=== PATIENT | male | born 1975 | race Caucasian/White ===

== ENCOUNTER 2017-05-11 17:48 | Inpatient (IN) | payer MEDICAID ==
[~2017-05-11] VITALS: Ht 170.2 cm; Wt 85.8 kg
[2017-05-11 20:18] LABS: BASOPHIL % 0.1 % (0-2); PLATELET COUNT 298 x10^3mcL (130-400); RED CELL DISTRIBUTION WIDTH 13.7 % (11.5-14.5)
[2017-05-11 20:25] LABS: CALCIUM 9.6 mg/dL (8.5-10.1); CARBON DIOXIDE 30.6 mmol/L (21-32); CHLORIDE SERUM 102 mmol/L (98-107); GFR1 > 60 mL/min; GLUCOSE SERUM 120 mg/dL (74-106); POTASSIUM SERUM 4.3 mmol/L (3.5-5.1); SODIUM SERUM 141 mmol/L (136-145)
[2017-05-11 20:29] LABS: ALBUMIN 4.6 g/dL (3.4-5.0); ALKALINE PHOSPHATASE 71 U/L (46-116); ALT/SGPT 66 U/L (16-63); AST/SGOT 32 U/L (15-37); BILIRUBIN TOTAL 0.82 mg/dL (0.20-1.00); LIPASE 84 IU/L (73-393)
[2017-05-11 20:30] LABS: TOTAL PROTEIN, SERUM 8.3 g/dL (6.4-8.2)
[2017-05-11 22:19] LABS: UA SPECIFIC GRAVITY 1.015 (1.005-1.035); microscopic required? YES; urine erythrocyte NEGATIVE (NEGATIVE)
[2017-05-11 22:29] LABS: AMPHETAMINE QUAL UR NONE DETECTED (NEG <=1000)
[2017-05-11 22:38] VITALS: BP 125/81
[2017-05-11 22:59] LABS: T3 TOTAL 1.63 ng/mL
[2017-05-11 23:15] LABS: CHOLESTEROL/HDL RATIO 4.5; PHOSPHOROUS 2.4 mg/dL (2.5-4.9)
[2017-05-11 23:19] LABS: FREE T4 1.21 ng/dL (0.76-1.46); FREE THYROXINE INDEX 3.1 ug/dL (1.4-4.5); T4(THYROXINE) 9.4 ug/dL (4.7-13.3)
[2017-05-12] VITALS (7 sets, daily range): BP systolic 108–128; BP diastolic 62–79
[2017-05-12 06:30] LABS: CALCIUM 8.7 mg/dL (8.5-10.1); CARBON DIOXIDE 30.8 mmol/L (21-32); CHLORIDE SERUM 104 mmol/L (98-107); GFR1 > 60 mL/min; GLUCOSE SERUM 107 mg/dL (74-106); PHOSPHOROUS 3.6 mg/dL (2.5-4.9); POTASSIUM SERUM 3.7 mmol/L (3.5-5.1); SODIUM SERUM 140 mmol/L (136-145)
[2017-05-12 06:48] LABS: BASOPHIL % 0.2 % (0-2); PLATELET COUNT 259 x10^3mcL (130-400); RED CELL DISTRIBUTION WIDTH 13.3 % (11.5-14.5)
[2017-05-13 05:20] VITALS: BP 101/59
[2017-05-13 06:22] LABS: CALCIUM 8.9 mg/dL (8.5-10.1); CHLORIDE SERUM 104 mmol/L (98-107); CREATININE SERUM 1.1 mg/dL (0.7-1.3); GFR1 > 60 mL/min; GLUCOSE SERUM 93 mg/dL (74-106); POTASSIUM SERUM 3.9 mmol/L (3.5-5.1); SODIUM SERUM 140 mmol/L (136-145)
[2017-05-13 06:43] LABS: BASOPHIL % 0.3 % (0-2); PLATELET COUNT 281 x10^3mcL (130-400); RED CELL DISTRIBUTION WIDTH 13.6 % (11.5-14.5)
[2017-05-13 09:07] VITALS: BP 119/69
[2017-05-13 13:21] VITALS: BP 121/74
[2017-05-13] MEDS ORDERED: NORCO1 TA2 PO (15:51)
[2017-05-13] MEDS ORDERED: COL100 PO (15:51)
== END 2017-05-13 17:05 | disposition home or self-care (01) | DRG 225 ==
LOC: ED 17:48 → DU 21:30
PROVIDERS: Emergency Medicine; Surgery; ADMIT Family Medicine
PROC: 0DTJ4ZZ Resection of Appendix, Percutaneous Endoscopic Approach (ICD-10-PCS; principal; 2017-05-12 12:00)
DX: K35.80 Unspecified acute appendicitis (principal); N17.0 Acute kidney failure with tubular necrosis; E78.5 Hyperlipidemia, unspecified; E83.39 Other disorders of phosphorus metabolism; Z68.29 Body mass index [BMI] 29.0-29.9, adult
CPT/HCPCS: 83880; 84439; 90658; J0330; J0696; J1170; J2250; J2405; J2704; J2710; J3010; J3490; J7030; J7120